=== PATIENT | female | born 1990 | race Caucasian/White ===

== ENCOUNTER 2017-08-26 05:18 | Emergency (ER) | payer MEDICAID ==
[2017-08-26] MEDS ORDERED: ORPHENADRINE CITRATE 60MG/2ML VIAL IM ONE (05:34)
--- NOTE | 2017-08-26 05:41 | Emergency Department Record ---
History of Present Illness - General Chief Complaint: Back Pain/Injury Stated Complaint: BACK INJURY Time Seen by Provider: 08/26/17 05:34 Source: Patient Mode of Arrival: Ambulatory Limitations: No limitations - History of Present Illness Initial Comments: 27 yo female presents to ED for evaluation for pain in low back that began last night around 20:00. Patient reports that she was throwing her child in the air playing when she felt a pop in her low back. Patient reports pain with position change, denies pain when remaining still. Patient reports taking Motrin for her pain symptoms without improvement. Patient denies numbness, tingling, or lower extremity weakness on examination. MD Complaint: Back pain Onset/Timin -: Hour(s) Place: Home Severity: Severe Severity scale (1-10): 9 Quality: Sharp Consistency: Constant Improves With: Immobilization Worsens With: Movement Associated Symptoms: Denies other symptoms - Related Data Home Medications Medication Instructions Recorded Confirmed Last Taken Gabapentin [Neurontin] 300 mg PO BID 08/26/17 08/26/17 Unknown Propranolol HCl [Propranolol HCl] 10 mg PO TID 08/26/17 08/26/17 Unknown Topiramate [Topamax] 50 mg PO BID 08/26/17 08/26/17 Unknown Previous Rx's Medication Instructions Recorded Diazepam [Valium] 5 mg PO Q8H PRN #10 tab 08/26/17 Ibuprofen [Motrin 600Mg] 600 mg PO Q6H #30 tablet 08/26/17 Allergies Allergy/AdvReac Type Severity Reaction Status Date / Time No Known Drug Allergies Allergy Verified 08/26/17 05:27 Travel Screening - Travel/Exposure Within Last 30 Days Have you traveled within the last 30 days?: No Review of Systems Constitutional: Denies: Chills, Fever, Malaise, Night sweats Eyes: Denies: Eye discharge, Eye pain ENT: Denies: Congestion, Ear pain, Epistaxis Respiratory: Denies: Cough, Dyspnea Cardiovascular: Denies: Chest pain, Dyspnea on exertion Endocrine: Denies: Fatigue, Heat or cold intolerance Gastrointestinal: Denies: Abdominal pain, Nausea, Vomiting Genitourinary: Denies: Incontinence, Retention Musculoskeletal: Reports: Back pain. Denies: Arthralgia, Gout, Joint swelling Skin: Denies: Bruising, Change in color, Change in hair/nails Neurological: Denies: Abnormal gait, Confusion, Headache, Seizure Psychiatric: Denies: Anxiety Hematological/Lymphatic: Denies: Anemia, Blood Clots Past Medical History - SOCIAL HISTORY Smoking Status: Current every day smoker - RESPIRATORY Hx Respiratory Disorders: Yes Hx Asthma: Yes - CARDIOVASCULAR Hx Cardio Disorders: No - NEURO Hx Neuro Disorders: Yes Hx Headaches: Yes (Migraines) Comment:: [place] Palsy when - GI Hx GI Disorders: No - Hx Genitourinary Disorders: Yes Comment:: dysmenorrhea - ENDOCRINE Hx Endocrine Disorders: No - MUSCULOSKELETAL Hx Musculoskeletal Disorders: Yes Comment:: multiple trigger fingers related to work - PSYCH Hx Psych Problems: No - HEMATOLOGY/ONCOLOGY Hx Hematology/Oncology Disorders: No Family Medical History Any Significant Family History?: Yes Hx Cancer: Grandparents Hx Diabetes: Grandparents Hx Heart Disease: Mother Hx Resp Disorders: Mother, Grandparents Physical Exam - General General Appearance: Alert, Oriented x3, Cooperative, Moderate distress Limitations: No limitations - Head Head exam: Atraumatic, Normocephalic, Normal inspection Head exam detail: negative: Abrasion, Contusion, Angel's sign, General tenderness, Hematoma, Laceration - Eye Eye exam: Normal appearance. negative: Conjunctival injection, Periorbital swelling, Periorbital tenderness, Scleral icterus - ENT Ear exam: negative: Auricular hematoma, Auricular trauma Nasal Exam: negative: Active bleeding, Discharge, Dried blood, Foreign body Mouth exam: negative: Drooling, Laceration, Muffled voice, Tongue elevation - Neck Neck exam: Normal inspection. negative: Meningismus, Tenderness - Respiratory Respiratory exam: Normal lung sounds bilaterally. negative: Rales, Respiratory distress, Rhonchi, Stridor - Cardiovascular Cardiovascular Exam: Regular rate, Normal rhythm, Normal heart sounds - GI/Abdominal GI/Abdominal exam: Soft. negative: Rebound, Rigid, Tenderness - Rectal Rectal exam: Deferred - exam: Deferred - Extremities Extremities exam: Normal inspection. negative: Calf tenderness, Pedal edema, Tenderness - Back Back exam: Reports: Paraspinal tenderness. Denies: Rash noted - Neurological Neurological exam: Alert, Normal gait, Oriented X3 - Psychiatric Psychiatric exam: Normal affect, Normal mood - Skin Skin exam: Normal color. negative: Abrasion Type of lesion: negative: abrasion Course Vital Signs 08/26/17 05:22 Temperature 97.7 F Pulse Rate 80 Respiratory 18 Rate Blood Pressure 128/92 Pulse Ox 100 - Reevaluation(s) Reevaluation #1: 08/26/17 05:39 Patient was seen and examined, radiographs are not felt of be of benefit given the mechanism of injury and her age. Will treat the patient symptomatically for her back pain symptoms. Disposition Disposition: Discharge Clinical Impression: Back injury Qualifiers: Encounter type: initial encounter Qualified Code(s): S39.92XA - Unspecified injury of lower back, initial encounter Disposition: Home, Self-Care Condition: (2) Stable Instructions: Low Back Strain (ED) Additional Instructions: Return to ED if your symptoms worsen or if you have any concerns. Motrin and Valium as directed. Follow-up with a primary care provider in 3-5 days as directed. Prescriptions: Diazepam [Valium] 5 mg PO Q8H PRN #10 tab PRN Reason: Pain - Moderate (5-7) Ibuprofen [Motrin 600Mg] 600 mg PO Q6H #30 tablet Forms: Patient Portal Access Time of Disposition: 05:44 Quality - Quality Measures Quality Measures: N/A - Blood Pressure Screening Does Patient Have Any of the Following: No Blood Pressure Classification: Pre-Hypertensive BP Reading Systolic Measurement: 132 Diastolic Measurement: 88 Screening for High Blood Pressure: < Pre-Hypertensive BP, F/U Documented > [ G8950] Pre-Hypertensive Follow-up Interventions: Referral to alternative/primary care provider.
== END 2017-08-26 06:32 | disposition home or self-care (01) ==
LOC: ER 05:18
DX: S39.92XA Unspecified injury of lower back, initial encounter (principal); X50.0XXA Overexertion from strenuous movement or load, initial encounter; Y92.009 Unspecified place in unspecified non-institutional (private) residence as the place of occurrence of the external cause
CPT/HCPCS: 96372; 99283; J2360

== ENCOUNTER 2017-12-04 18:07 | Emergency (ER) | payer SELFPAY ==
[2017-12-04] MEDS ORDERED: ONDANSETRON HCL IV 4 MG/2 ML VIAL IV ONE (18:39)
[2017-12-04] MEDS ORDERED: 0.9 % SODIUM CHLORIDE 1,000 ML BAG IV ONE (18:39)
--- NOTE | 2017-12-04 18:43 | Emergency Department Record ---
History of Present Illness - General Chief complaint: Nausea, Vomiting, Diarrhea Stated complaint: VOMITING AND DIARRHEA Time Seen by Provider: 12/04/17 18:31 Source: Patient Mode of Arrival: Ambulatory Limitations: No limitations - History of Present Illness Initial comments: The patient is here due to nausea and vomiting off and on for a month. It seems to have gotten worse the last few days. She is having abdominal cramping prior to the vomiting and did have a loose stool last night. There has been no fever, chills, dysuria, vaginal discharge or SWIFT. The patient used to take Omeprazole but since she has lost her Medicaid at least 6 months ago she has been off it. She did just start some OTC Omeprazole. MD complaint: Nausea, Vomiting Onset/Timin -: Days(s) Description of Vomiting: Bilious Description of Diarrhea: Other Improves with: None Worsens with: None Associated Symptoms: Fever/chills, Nausea/vomiting - Related Data Home Medications Medication Instructions Recorded Confirmed Last Taken Omeprazole 40 mg PO BID 12/04/17 12/04/17 12/04/17 Previous Rx's Medication Instructions Recorded Nitrofurantoin [place] [Macrobid] 100 mg PO BID #14 capsule 12/04/17 Ondansetron [Zofran Odt] 4 mg SL .Q4-6H PRN #12 tab.rapdis 12/04/17 Allergies Allergy/AdvReac Type Severity Reaction Status Date / Time No Known Drug Allergies Allergy Verified 12/04/17 18:21 Travel Screening - Travel/Exposure Within Last 30 Days Have you traveled within the last 30 days?: No - Travel/Exposure Within Last Year Have you traveled outside the [place] in the last year?: No - Additonal Travel Details Have you been exposed to anyone with a communicable illness?: No - Travel Symptoms Symptom Screening: None Review of Systems Constitutional: Denies: Chills, Fever Eyes: Denies: Eye discharge ENT: Denies: Congestion Respiratory: Denies: Cough, Dyspnea Past Medical History - SOCIAL HISTORY Smoking Status: Current every day smoker Alcohol Use: None Drug Use: None - RESPIRATORY Hx Respiratory Disorders: Yes Hx Asthma: Yes Hx COPD: Yes - CARDIOVASCULAR Hx Cardio Disorders: No - NEURO Hx Neuro Disorders: Yes Hx Headaches: Yes (Migraines) Comment:: [place] Palsy when - GI Hx GI Disorders: No - Hx Genitourinary Disorders: Yes Comment:: dysmenorrhea - ENDOCRINE Hx Endocrine Disorders: No - MUSCULOSKELETAL Hx Musculoskeletal Disorders: Yes Comment:: multiple trigger fingers related to work - PSYCH Hx Psych Problems: No - HEMATOLOGY/ONCOLOGY Hx Hematology/Oncology Disorders: No Family Medical History Any Significant Family History?: No Hx Cancer: Grandparents Hx Diabetes: Grandparents Hx Heart Disease: Mother Hx Resp Disorders: Mother, Grandparents Physical Exam - General General Appearance: Alert, Oriented x3, Cooperative, No acute distress - Head Head exam: Atraumatic, Normocephalic, Normal inspection - Eye Eye exam: Normal appearance, PERRL - Neck Neck exam: Normal inspection, Full ROM. negative: Tenderness - Respiratory Respiratory exam: Normal lung sounds bilaterally. negative: Respiratory distress - Cardiovascular Cardiovascular Exam: Regular rate, Normal rhythm, Normal heart sounds - GI/Abdominal GI/Abdominal exam: Soft, Normal bowel sounds, Tenderness (There is very mild upper abdominal tenderness.). negative: Guarding, Organomegaly, Rebound, Rigid - Extremities Extremities exam: Normal inspection, Full ROM, Normal capillary refill. negative: Tenderness - Neurological Neurological exam: Alert. negative: Motor sensory deficit Course Vital Signs 12/04/17 18:09 Temperature 97.6 F Pulse Rate 64 Respiratory 18 Rate Blood Pressure 127/89 Pulse Ox 100 - Reevaluation(s) Reevaluation #1: The patient is doing much better at this time. Her nausea is gone and she denies any AP, diarrhea or cramping. On exam her abdomen is very soft and nontender in all 4 quads. She feels ready for home. 12/04/17 19:53 Reevaluation #2: The patient is doing a lot better at this time. She is drinking fluids well with no nausea or vomiting. I again did ask about any urinary symptoms but she did deny any dysuria, or urinary urgency. Due to the urine appearing with a significant amount of bacteria present even though it is mildly contaminated we will treat her for a UTI. 12/04/17 20:01 Medical Decision Making - Data Complexity MDM Data: Labs Ordered and/or Reviewed - Lab Data Result diagrams: 12/04/17 18:33 02 18:33 Disposition Disposition: Discharge Clinical Impression: Nausea & vomiting Qualifiers: Vomiting type: unspecified Vomiting Intractability: non-intractable Qualified Code(s): R11.2 - Nausea with vomiting, unspecified Disposition: Home, Self-Care Condition: (2) Stable Instructions: Acute Nausea and Vomiting (ED) Additional Instructions: Please drink plenty of fluids and use the Zofran for nausea and continue the Macrobid. Please see your PCP early next week for recheck if not better and return to the ER for any fever, increased vomiting, any abdominal pain, or back pain. Prescriptions: Nitrofurantoin [place] [Macrobid] 100 mg PO BID #14 capsule Ondansetron [Zofran Odt] 4 mg SL .Q4-6H PRN #12 tab.rapdis PRN Reason: Nausea Forms: Patient Portal Access Time of Disposition: 20:04 Quality - Quality Measures Quality Measures: N/A - Blood Pressure Screening View Details: Yes Does Patient Have Any of the Following: No Blood Pressure Classification: Pre-Hypertensive BP Reading Systolic Measurement: 127 Diastolic Measurement: 89 Screening for High Blood Pressure: < Pre-Hypertensive BP, F/U Documented > [ G8950] Pre-Hypertensive Follow-up Interventions: Referral to alternative/primary care provider.
[2017-12-04 18:54] LABS: BASO % 0.2 % (0-6); EOS % 1.6 % (0-6); GRAN % 61.4 % (47-80); HEMATOCRIT 42.8 % (35.0-47.0); HEMOGLOBIN 14.2 gm/dl (11.6-16.0); LYMPH % 31.5 % (16-45); MEAN CELL VOLUME 89.5 fl (81-97); MEAN CORPUSCULAR HEMOGLOBIN 29.7 pg (27-33); MEAN CORPUSCULAR HGB CONC 33.2 g/dl (32-36); MEAN PLATELET VOLUME 11.2 fl (7.4-10.4); MONO % 5.3 % (0-9); PLATELET COUNT 186 K/uL (130-400); RED BLOOD COUNT 4.78 M/uL (3.80-5.40); RED CELL DISTRIBUTION WIDTH 12.2 % (11.5-14.5); WHITE BLOOD COUNT W/O DIFF 9.4 K/uL (4.2-12.2)
[2017-12-04] MEDS ORDERED: SUCRALFATE 1 G/10 ML UD PO ONE (18:56)
[2017-12-04 19:14] LABS: ALBUMIN 4.5 g/dL (4.0-5.0); ALKALINE PHOSPHATASE 60 U/L (35-104); ALT/SGPT 12 U/L (<33); AST/SGOT 17 U/L (10.0-35.0); BLOOD UREA NITROGEN 9 mg/dL (6-20); CREATININE 0.6 mg/dL (0.5-0.9); EST GLOMERULAR FILTRATION RATE > 60 mL/min; GLUCOSE,RANDOM 112 mg/dL (74-109)
[2017-12-04 19:15] LABS: LIPASE 14 U/L (13-60); TOTAL PROTEIN 6.7 g/dL (6.6-8.7)
[2017-12-04 19:27] LABS: BILIRUBIN,DIRECT < 0.2 mg/dL (0-0.3)
[2017-12-04 19:48] LABS: URINE APPEARANCE SL CLOUDY; URINE BILIRUBIN NEGATIVE (NEGATIVE); URINE BLOOD NEGATIVE (NEGATIVE); URINE COLOR YELLOW; URINE GLUCOSE (UA) NEGATIVE (NEGATIVE); URINE KETONE NEGATIVE (NEGATIVE); URINE LEUKOCYTE ESTERASE TRACE (NEGATIVE); URINE NITRITE POSITIVE (NEGATIVE); URINE PROTEIN NEGATIVE (NEGATIVE); URINE UROBILINOGEN 0.2 E.U./dL (0.20 - 1.00)
[2017-12-04 19:50] LABS: HCG,QUALITATIVE URINE NEGATIVE (NEGATIVE)
[2017-12-04 19:55] LABS: URINE RBC 0 - 2 (NONE SEEN)
[2017-12-04 19:56] LABS: URINE BACTERIA 4+
[2017-12-04] MEDS ORDERED: NITROFURANTOIN MONO 100 MG CAPSULE PO ONE (19:59)
== END 2017-12-04 20:11 | disposition home or self-care (01) ==
LOC: ER 18:07
DX: R11.2 Nausea with vomiting, unspecified (principal); R19.7 Diarrhea, unspecified; F17.210 Nicotine dependence, cigarettes, uncomplicated
CPT/HCPCS: 99284 ×2; 96374; 83690; 85025; 80076; 80048; 81001; 81025; J2405; J7030

== ENCOUNTER 2017-12-28 14:31 | Emergency (ER) | payer SELFPAY ==
[2017-12-28] MEDS ORDERED: ACETAMINOPHEN 325 MG TAB PO ONE (15:25)
--- NOTE | 2017-12-28 15:30 | Emergency Department Record ---
History of Present Illness - General Chief Complaint: Cough Stated Complaint: VOMITING/COUGHING/SWEATS Time Seen by Provider: 12/28/17 15:23 Source: Patient Mode of Arrival: Ambulatory Limitations: No limitations - History of Present Illness Initial Comments: The patient is here due to a one day hx of cough, body aches, mild SWIFT, nausea, mild ST and runny nose. She was here in the ER 2 days ago with her son who tested positive for Influenza. Now she is concerned she has it. She did have some mild vomiting but is better now and keeping everything down. MD Complaint: Cough, Nasal congestion, Rhinorrhea, Sore throat Onset/Timin -: Days(s) Severity scale (1-10): 8 Consistency: Constant - Related Data Previous Rx's Medication Instructions Recorded Oseltamivir Phosphate [Tamiflu] 75 mg PO BID #10 capsule 12/28/17 Allergies Allergy/AdvReac Type Severity Reaction Status Date / Time No Known Drug Allergies Allergy Verified 12/04/17 18:21 Travel Screening - Travel/Exposure Within Last 30 Days Have you traveled within the last 30 days?: No Review of Systems Constitutional: Reports: Chills, Malaise. Denies: Fever Eyes: Denies: Eye discharge ENT: Reports: Congestion Respiratory: Reports: Cough. Denies: Dyspnea Past Medical History - SOCIAL HISTORY Smoking Status: Current every day smoker - RESPIRATORY Hx Respiratory Disorders: Yes Hx Asthma: Yes Hx COPD: Yes - CARDIOVASCULAR Hx Cardio Disorders: No - NEURO Hx Neuro Disorders: Yes Hx Headaches: Yes (Migraines) Comment:: [place] Palsy when - GI Hx GI Disorders: No - Hx Genitourinary Disorders: Yes Comment:: dysmenorrhea - ENDOCRINE Hx Endocrine Disorders: No - MUSCULOSKELETAL Hx Musculoskeletal Disorders: Yes Comment:: multiple trigger fingers related to work - PSYCH Hx Psych Problems: No - HEMATOLOGY/ONCOLOGY Hx Hematology/Oncology Disorders: No Family Medical History Any Significant Family History?: Yes Hx Cancer: Grandparents Hx Diabetes: Grandparents Hx Heart Disease: Mother Hx Resp Disorders: Mother, Grandparents Physical Exam - General General Appearance: Alert, Oriented x3, Cooperative, No acute distress - Head Head exam: Atraumatic, Normocephalic, Normal inspection - Eye Eye exam: Normal appearance, PERRL - ENT ENT exam: Normal exam, Mucous membranes moist, Normal external ear exam, Normal orophraynx, TM's normal bilaterally Throat exam: Normal inspection. negative: Tonsillar erythema, Tonsillar exudate - Neck Neck exam: Normal inspection, Full ROM. negative: Lymphadenopathy, Meningismus (The neck is very supple.), Tenderness - Respiratory Respiratory exam: Normal lung sounds bilaterally. negative: Respiratory distress - Cardiovascular Cardiovascular Exam: Regular rate, Normal rhythm, Normal heart sounds - GI/Abdominal GI/Abdominal exam: Soft, Normal bowel sounds. negative: Tenderness - Extremities Extremities exam: Normal inspection, Full ROM, Normal capillary refill. negative: Tenderness - Neurological Neurological exam: Alert, Normal gait. negative: Abnormal gait, Motor sensory deficit - Skin Skin exam: negative: Rash Course Vital Signs 12/28/17 15:15 Temperature 98.3 F Pulse Rate 77 Respiratory 18 Rate Blood Pressure 119/75 Pulse Ox 99 - Reevaluation(s) Reevaluation #1: I explained to the patient that due to the high likelyhood she has Influenza we will discharge her on Tamiflu and she is to use Tylenol or Motrin for body aches. 12/28/17 15:28 Disposition Disposition: Discharge Clinical Impression: Influenza Disposition: Home, Self-Care Condition: (2) Stable Instructions: Influenza (ED) Additional Instructions: Please use TYlenol and Motrin for body aches and headaches. Please take the Tamiflu as directed and see your family doctor if not better in 3 days. Return to the ER for any worsening symptoms. Prescriptions: Oseltamivir Phosphate [Tamiflu] 75 mg PO BID #10 capsule Time of Disposition: 15:30 Quality - Quality Measures Quality Measures: N/A - Blood Pressure Screening View Details: Yes Does Patient Have Any of the Following: No Blood Pressure Classification: Normal BP Reading Systolic Measurement: 119 Diastolic Measurement: 75 Screening for High Blood Pressure: < Normal BP, F/U Not Required > [G8783]
== END 2017-12-28 15:45 | disposition home or self-care (01) ==
LOC: ER 14:31
DX: J10.1 Influenza due to other identified influenza virus with other respiratory manifestations (principal); F17.210 Nicotine dependence, cigarettes, uncomplicated
CPT/HCPCS: 99282

== ENCOUNTER 2019-03-17 00:47 | Emergency (ER) | payer MEDICAID ==
[2019-03-17] MEDS ORDERED: NEOMYCIN/POLYMYXIN B SULF/HC 10ML BTL OT ONE (01:12)
[2019-03-17] MEDS ORDERED: PENICILLIN V POTASSIUM 250 MG TAB PO ONE (01:13)
--- NOTE | 2019-03-17 01:19 | Emergency Department Record ---
History of Present Illness - General Chief complaint: ENT Stated complaint: TICK IN EAR Time Seen by Provider: 03/17/19 01:12 Source: Patient Mode of Arrival: Ambulatory Limitations: No limitations - History of Present Illness Initial comments: pt has a dental abscess that she is scheduled to see a dentist for and she has pain in her l ear and fears a tick is in there. MD complaint: Ear pain, Tooth pain Onset/Timin -: Days(s) Location: L ear Severity scale (1-10): 8 Quality: Aching Consistency: Constant Improves with: None Worsens with: None Context- Dental: History of dental caries, Poor dental care Associated Symptoms: Toothache - Related Data Home Medications Medication Instructions Recorded Confirmed Last Taken Paroxetine HCl [Paxil] 10 mg PO BID 03/17/19 03/17/19 Unknown Topiramate [Topamax] 100 mg PO BID 03/17/19 03/17/19 Unknown Previous Rx's Medication Instructions Recorded Penicillin V Potassium 500 mg PO Q6HR #28 tablet 03/17/19 Allergies Allergy/AdvReac Type Severity Reaction Status Date / Time No Known Drug Allergies Allergy Unverified 12/28/18 18:55 Travel Screening - Travel/Exposure Within Last 30 Days Have you traveled within the last 30 days?: No Review of Systems Reviewed: No additional complaints except as noted below Constitutional: Reports: As per HPI. Denies: Chills, Fever, Malaise, Night sweats, Weakness, Weight change Eyes: Reports: As per HPI. Denies: Eye discharge, Eye pain, Photophobia, Vision change ENT: Reports: As per HPI, Dental pain, Ear pain. Denies: Congestion, Epistaxis, Hearing loss, Throat pain Respiratory: Reports: As per HPI. Denies: Cough, Dyspnea, Hemoptysis, Stridor, Wheezes Cardiovascular: Reports: As per HPI. Denies: Arrhythmia, Chest pain, Dyspnea on exertion, Edema, Murmurs, Orthopnea, Palpitations, Paroxysmal nocturnal dyspnea, Rheumatic Fever, Syncope Endocrine: Reports: As per HPI. Denies: Fatigue, Heat or cold intolerance, Polydipsia, Polyuria Gastrointestinal: Reports: As per HPI. Denies: Abdominal pain, Constipation, Diarrhea, Hematemesis, Hematochezia, Melena, Nausea, Vomiting Genitourinary: Reports: As per HPI. Denies: Abnormal menses, Discharge, Dyspareunia, Dysuria, Frequency, Hematuria, Incontinence, Retention, Urgency Musculoskeletal: Reports: As per HPI. Denies: Arthralgia, Back pain, Gout, Joint swelling, Myalgia, Neck pain Skin: Reports: As per HPI. Denies: Bruising, Change in color, Change in hair/nails, Lesions, Pruritus, Rash Neurological: Reports: As per HPI. Denies: Abnormal gait, Confusion, Headache, Numbness, Paresthesias, Seizure, Tingling, Tremors, Vertigo, Weakness Psychiatric: Reports: As per HPI. Denies: Anxiety, Auditory hallucinations, Depression, Homicidal thoughts, Suicidal thoughts, Visual hallucinations Hematological/Lymphatic: Reports: As per HPI. Denies: Anemia, Blood Clots, Easy bleeding, Easy bruising, Swollen glands Past Medical History - SOCIAL HISTORY Smoking Status: Current every day smoker Alcohol Use: None Drug Use: None - RESPIRATORY Hx Respiratory Disorders: Yes Hx Asthma: Yes Hx COPD: Yes - CARDIOVASCULAR Hx Cardio Disorders: No - NEURO Hx Neuro Disorders: Yes Hx Headaches: Yes (Migraines) Comment:: [place] Palsy when - GI Hx GI Disorders: No - Hx Genitourinary Disorders: Yes Comment:: dysmenorrhea - ENDOCRINE Hx Endocrine Disorders: No - MUSCULOSKELETAL Hx Musculoskeletal Disorders: Yes Comment:: multiple trigger fingers related to work - PSYCH Hx Psych Problems: No - HEMATOLOGY/ONCOLOGY Hx Hematology/Oncology Disorders: No Family Medical History Any Significant Family History?: Yes Hx Cancer: Grandparents Hx Diabetes: Grandparents Hx Heart Disease: Mother Hx Resp Disorders: Mother, Grandparents Physical Exam - General General Appearance: Alert, Oriented x3, Cooperative, No acute distress - Head Head exam: Normal inspection - Eye Eye exam: Normal appearance, PERRL, EOMI Pupils: Normal accommodation - ENT ENT exam: Normal exam, Mucous membranes moist, Normal external ear exam, Normal orophraynx, TM's normal bilaterally, Other (l canal erythematous and tender, no tick) Ear exam: Normal external inspection. negative: External canal tenderness Nasal Exam: Normal inspection. negative: Discharge, Sinus tenderness Mouth exam: Normal external inspection, Tongue normal Teeth exam: Normal inspection. negative: Dental caries Throat exam: Normal inspection. negative: Tonsillar erythema, Tonsillar exudate - Neck Neck exam: Normal inspection, Full ROM. negative: Tenderness - Respiratory Respiratory exam: Normal lung sounds bilaterally. negative: Respiratory dis tress - Cardiovascular Cardiovascular Exam: Regular rate, Normal rhythm, Normal heart sounds - GI/Abdominal GI/Abdominal exam: Soft, Normal bowel sounds. negative: Tenderness - Rectal Rectal exam: Deferred - exam: Deferred - Extremities Extremities exam: Normal inspection, Full ROM, Normal capillary refill. negative: Tenderness - Back Back exam: Reports: Normal inspection, Full ROM. Denies: Muscle spasm, Rash noted, Tenderness - Neurological Neurological exam: Alert, CN II-XII intact, Normal gait, Oriented X3 - Psychiatric Psychiatric exam: Normal affect, Normal mood - Skin Skin exam: Dry, Intact, Normal color, Warm Course Vital Signs 03/17/19 00:57 Temperature 97.7 F Pulse Rate [ 87 Pulse Ox Probe] Respiratory 20 Rate Blood Pressure 123/90 [Left Arm] Pulse Ox 100 Disposition Disposition: Discharge Clinical Impression: Dental abscess Otitis externa Qualifiers: Otitis externa type: unspecified type Chronicity: acute Laterality: left Qualified Code(s): H60.502 - Unspecified acute noninfective otitis externa, left ear Disposition: Home, Self-Care Condition: (1) Good Instructions: Otitis Externa (ED), Dental Abscess (ED) Additional Instructions: follow up with dentist and family doctor norm. return sooner if worse. cortisporin otic drops 2 drops 4 x a day for the next 5 days Prescriptions: Penicillin V Potassium 500 mg PO Q6HR #28 tablet Quality - Quality Measures Quality Measures: N/A, Acute Otitis Externa (>2yr) - AOE: Topical Therapy Quality Measure: Measure #91: Acute Otitis Externa (AOE) AOE: Topical Preparations: < Topical Preparations (Inc. OTC) prescribed for AOE > [7870F] - AOE: Systemic Antimicrobial Therapy Quality Measure: Measure #93: Acute Otitis Externa (AOE) AOE: Systemic Antimicrobial Therapy: Medical Reasons for Systemic Antimicrobial Therapy [4571F with 1P] Medical Reason For Prescribing: Other (dental abscess) - Blood Pressure Screening Does Patient Have Any of the Following: No Blood Pressure Classification: Hypertensive Reading Systolic Measurement: 123 Diastolic Measurement: 90 Screening for High Blood Pressure: < Pre-Hypertensive BP, F/U Documented > [G1578] Pre-Hypertensive Follow-up Interventions: Follow-up with rescreen every year.
== END 2019-03-17 01:31 | disposition home or self-care (01) ==
LOC: ER 00:47
DX: K04.7 Periapical abscess without sinus (principal); H60.502 Unspecified acute noninfective otitis externa, left ear; F17.210 Nicotine dependence, cigarettes, uncomplicated
CPT/HCPCS: 99282

== ENCOUNTER 2019-04-05 07:19 | Emergency (ER) | payer MEDICAID | END 2019-04-05 08:31 | disposition left against medical advice (07) | LOC: ER 07:19 | DX: Z53.20 Procedure and treatment not carried out because of patient's decision for unspecified reasons (principal) ==